=== PATIENT | male | born 1985 ===

== ENCOUNTER 2016-07-27 13:29 | Emergency (ER) | payer SELFPAY ==
[2016-07-27] MEDS ORDERED: TORADOL IM ONE (16:07)
[2016-07-27] MEDS ORDERED: MORPHINE IM ONE (16:07)
[2016-07-27] MEDS ORDERED: VALIUM PO ONE (17:13)
--- NOTE | 2016-07-27 17:29 | Emergency Department Report ---
ED Back Pain/Injury HPI - General Chief Complaint: Back Pain/Injury Stated Complaint: BACK PAIN Time Seen by Provider: 07/27/16 15:56 Source: patient Limitations: No Limitations - History of Present Illness Initial Comments: Patient comes into the ER today with complaints of lower back pain after pulling on a pallet yesterday while at work. Patient states that initially he felt a little discomfort but that the pain seemed to worsen with time. States the pain is a lot worse this morning and that it is very hard for him to get out of bed. Patient denies any loss of bowel control or urinary control. Patient states the pain is not radiating down his legs. Patient denies any past history of back problems. MD Complaint: back pain, back injury -: days(s) (1) - Related Data Previous Rx's Medication Instructions Recorded Last Taken Type Diazepam Tab [Valium] 5 mg PO TID PRN #20 tablet 07/27/16 Unknown Rx predniSONE [Deltasone] 20 mg PO QDAY #18 tab 07/27/16 Unknown Rx traMADol [Ultram 50 MG tab] 50 mg PO Q4HR PRN #20 tablet 07/27/16 Unknown Rx Allergies Allergy/AdvReac Type Severity Reaction Status Date / Time No Known Allergies Allergy Verified 05/17/14 16:43 ED Review of Systems ROS: Stated complaint: BACK PAIN Other details as noted in HPI Constitutional: denies: chills, fever Eyes: denies: eye pain, eye discharge, vision change ENT: denies: ear pain, throat pain Respiratory: denies: cough, shortness of breath, wheezing Cardiovascular: denies: chest pain, palpitations Endocrine: no symptoms reported Gastrointestinal: denies: abdominal pain, nausea, diarrhea Genitourinary: denies: urgency, dysuria Musculoskeletal: back pain. denies: joint swelling, arthralgia Skin: denies: rash, lesions Neurological: denies: headache, weakness, paresthesias Psychiatric: denies: anxiety, depression Hematological/Lymphatic: denies: easy bleeding, easy bruising ED Past Medical Hx - Past Medical History Previous Medical History?: Yes Hx Hypertension: No Hx CVA: No Hx Heart Attack/AMI: No Hx Congestive Heart Failure: No Hx Diabetes: No Hx Deep Vein Thrombosis: No Hx Pulmonary Embolism: No Hx GERD: No Hx Liver Disease: No Hx Renal Disease: No Hx Sickle Cell Disease: No Hx Arthritis: No Hx Headaches / Migraines: No Hx Seizures: No Hx Kidney Stones: No Hx Psychiatric Treatment: No Hx Asthma: Yes Hx COPD: No Hx Tuberculosis: No Hx Dementia: No Hx HIV: No Additional medical history: PTSD. head trauma. Multiple injuries to the left foot and ankle to include fractures - Surgical History Past Surgical History?: Yes Hx Coronary Stent: No Hx Open Heart Surgery: No Hx Pacemaker: No Hx Internal Defibrillator: No Hx Cholecystectomy: No Hx Appendectomy: No Hx Breast Surgery: No Additional Surgical History: tonsillectomy. finger reattachment - Social History Smoking Status: Current Every Day Smoker Substance Use Type: None - Medications Home Medications: Home Medications Medication Instructions Recorded Confirmed Last Taken Type Diazepam Tab [Valium] 5 mg PO TID PRN #20 tablet 07/27/16 Unknown Rx predniSONE [Deltasone] 20 mg PO QDAY #18 tab 07/27/16 Unknown Rx traMADol [Ultram 50 MG tab] 50 mg PO Q4HR PRN #20 tablet 07/27/16 Unknown Rx ED Physical Exam - General Limitations: No Limitations General appearance: alert, in no apparent distress - Head Head exam: Present: atraumatic, normocephalic - Eye Eye exam: Present: normal appearance - ENT ENT exam: Present: mucous membranes moist - Neck Neck exam: Present: normal inspection - Respiratory Respiratory exam: Present: normal lung sounds bilaterally. Absent: respiratory distress - Cardiovascular Cardiovascular Exam: Present: regular rate, normal rhythm. Absent: systolic murmur, diastolic murmur, rubs, gallop - GI/Abdominal GI/Abdominal exam: Present: soft, normal bowel sounds. Absent: distended, tenderness - Rectal Rectal exam: Present: deferred - Extremities Exam Extremities exam: Present: normal inspection, full ROM, normal capillary refill. Absent: tenderness, pedal edema - Back Exam Back exam: Present: normal inspection, tenderness (midline lumbar paraspinal muscle tenderness.), muscle spasm, paraspinal tenderness. Absent: full ROM ( Limited range of motion secondary to pain.), CVA tenderness (R), CVA tenderness (L) - Neurological Exam Neurological exam: Present: alert, oriented X3, CN II-XII intact, reflexes normal. Absent: motor sensory deficit - Psychiatric Psychiatric exam: Present: normal affect, normal mood - Skin Skin exam: Present: warm, dry, intact, normal color. Absent: rash ED Course Vital Signs 07/27/16 07/27/16 07/27/16 13:49 16:16 16:17 Temperature 98.4 F Pulse Rate 55 L Respiratory 18 18 18 Rate Blood Pressure 117/77 O2 Sat by Pulse 100 Oximetry ED Medical Decision Making - Radiology Data Radiology results: image reviewed interpreted by me: Personal interpretation of x-rays reveals lumbar vertebrae to be in good alignment, no loss of disc space noted, no fracture noted. - Medical Decision Making Patient is nontoxic and hemodynamically stable. X-ray results review discuss the patient's family. I believe patient's symptoms are mostly muscular in etiology. Patient was given Toradol and morphine intramuscular here in the ER for symptomatic relief. Patient state he is feeling better but still uncomfortable after injections. I will continue patient on some muscle relaxers , anti-inflammatories, pain medications but symptomatically. I'll also refer patient to orthopedics for further evaluation to ensure resolution of injury. Patient is in agreement treatment plan patient is stable for discharge. Critical care attestation.: If time is entered above; I have spent that time in minutes in the direct care of this critically ill patient, excluding procedure time. ED Disposition Clinical Impression: Low back pain, Lumbar spine strain Disposition: DC-01 TO HOME OR SELFCARE Is pt being admited?: No Does the pt Need Aspirin: No Condition: Good Instructions: Low Back Strain (ED) Prescriptions: Diazepam Tab [Valium] 5 mg PO TID PRN #20 tablet PRN Reason: Muscle Spasm predniSONE [Deltasone] 20 mg PO QDAY #18 tab traMADol [Ultram 50 MG tab] 50 mg PO Q4HR PRN #20 tablet PRN Reason: Pain Referrals: PRIMARY CARE, [Primary Care Provider] - 3-5 Days JORGE A DENIS MD [Staff Physician] - 3-5 Days Forms: Work/School Release Form(ED) Time of Disposition: 17:46
[2016-07-27 18:11] VITALS: BP 128/72
--- NOTE | 2016-07-28 07:26 | XRay Report ---
AP AND LATERAL LUMBOSACRAL SPINE: History: Low back pain, lifting injury. The vertebral bodies are well mineralized and normal in alignment and vertebral height with well preserved interspace distances. The visualized portions of the posterior elements are normal. IMPRESSION: Normal study.
== END 2016-07-27 18:12 | disposition home or self-care (01) ==
LOC: ED 13:29
DX: S39.012A Strain of muscle, fascia and tendon of lower back, initial encounter (principal); J45.909 Unspecified asthma, uncomplicated; F17.200 Nicotine dependence, unspecified, uncomplicated; X58.XXXA Exposure to other specified factors, initial encounter; Y93.89 Activity, other specified; Y99.9 Unspecified external cause status; Y92.89 Other specified places as the place of occurrence of the external cause
CPT/HCPCS: 72100; 96372; 99283; J1885; J2270

== ENCOUNTER 2016-10-13 20:59 | Emergency (ER) | payer SELFPAY ==
--- NOTE | 2016-10-13 22:17 | Emergency Department Report ---
<CITLALLI JEREZ - Last Filed: 10/13/16 23:31> ED Upper Extremity Inj HPI - General Chief Complaint: Extremity Injury, Upper Stated Complaint: FINGER PAIN Time Seen by Provider: 10/13/16 22:03 Source: patient Mode of arrival: Ambulatory Limitations: No Limitations - History of Present Illness Initial Comments: This is a 30-year-old male nontoxic, well nourished in appearance, no acute signs of distress the presented ED complaining of left ring and left middle finger pain status post direct blow that has occurred today around 8 PM. Patient that he was playing with his children basketball when his child ran into his f left ring and middle fingers. Patient stated he then fell down to his left shoulder region. Patient denies any numbness, tingling, decreased range of motion, fever, chills, headache, chest pain or short of breath. Patient denies any head trauma. Denies loss of consciousness. Patient denies any decreased range of motion of shoulder. Patient stated has pain while having range of motion of digits and shoulder. Discussed pain as aching with level of 10 out of 10. Patient denies any drug allergies. Past medical history includes asthma and PTSD. 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 MD Complaint: Injury to:: left, shoulder, hand -: Gradual, This evening Other Extremity Injury: Fingers: Left, Hand: Left, Shoulder: Left Other Injuries: none Place: outdoors Severity scale (0 -10): 10 Improves With: none Worsens With: movement of extremity Context: fall (shoulder), direct blow (digits) Associated Symptoms: denies other symptoms. denies: weakness, numbness, neck pain, suspects foreign body, nausea/vomiting, heard/felt popping sensat - Related Data Previous Rx's Medication Instructions Recorded Last Taken Type Diazepam Tab [Valium] 5 mg PO TID PRN #20 tablet 07/27/16 Unknown Rx predniSONE [Deltasone] 20 mg PO QDAY #18 tab 07/27/16 Unknown Rx traMADol [Ultram 50 MG tab] 50 mg PO Q4HR PRN #20 tablet 07/27/16 Unknown Rx traMADol [Ultram] 50 mg PO Q6HR PRN #12 tablet 10/13/16 Unknown Rx Allergies Allergy/AdvReac Type Severity Reaction Status Date / Time No Known Allergies Allergy Verified 10/13/16 22:24 ED Review of Systems ROS: Stated complaint: FINGER PAIN Other details as noted in HPI Constitutional: denies: chills, fever Eyes: denies: eye pain, eye discharge, vision change ENT: denies: ear pain, throat pain Respiratory: denies: cough, shortness of breath, wheezing Cardiovascular: denies: chest pain, palpitations Endocrine: no symptoms reported Gastrointestinal: denies: abdominal pain, nausea, diarrhea Genitourinary: denies: urgency, dysuria Musculoskeletal: arthralgia (shoulder and fingers). denies: back pain, joint swelling Skin: denies: rash, lesions Neurological: denies: headache, weakness, paresthesias Psychiatric: denies: anxiety, depression Hematological/Lymphatic: denies: easy bleeding, easy bruising ED Past Medical Hx - Past Medical History Previous Medical History?: Yes Hx Hypertension: No Hx CVA: No Hx Heart Attack/AMI: No Hx Congestive Heart Failure: No Hx Diabetes: No Hx Deep Vein Thrombosis: No Hx Pulmonary Embolism: No Hx GERD: No Hx Liver Disease: No Hx Renal Disease: No Hx Sickle Cell Disease: No Hx Arthritis: No Hx Headaches / Migraines: No Hx Seizures: No Hx Kidney Stones: No Hx Psychiatric Treatment: No Hx Asthma: Yes Hx COPD: No Hx Tuberculosis: No Hx Dementia: No Hx HIV: No Additional medical history: PTSD. head trauma. Multiple injuries to the left foot and ankle to include fractures - Surgical History Past Surgical History?: Yes Hx Coronary Stent: No Hx Open Heart Surgery: No Hx Pacemaker: No Hx Internal Defibrillator: No Hx Cholecystectomy: No Hx Appendectomy: No Hx Breast Surgery: No Additional Surgical History: tonsillectomy. finger reattachment - Social History Smoking Status: Current Every Day Smoker Substance Use Type: Alcohol - Medications Home Medications: Home Medications Medication Instructions Recorded Confirmed Last Taken Type Diazepam Tab [Valium] 5 mg PO TID PRN #20 tablet 07/27/16 Unknown Rx predniSONE [Deltasone] 20 mg PO QDAY #18 tab 07/27/16 Unknown Rx traMADol [Ultram 50 MG tab] 50 mg PO Q4HR PRN #20 tablet 07/27/16 Unknown Rx traMADol [Ultram] 50 mg PO Q6HR PRN #12 tablet 10/13/16 Unknown Rx ED Physical Exam - General Limitations: No Limitations General appearance: alert, in no apparent distress - Head Head exam: Present: atraumatic, normocephalic, normal inspection - Eye Eye exam: Present: normal appearance, PERRL, EOMI. Absent: scleral icterus, conjunctival injection, nystagmus, periorbital swelling, periorbital tenderness Pupils: Present: normal accommodation - ENT ENT exam: Present: normal exam, normal orophraynx, mucous membranes moist, TM's normal bilaterally, normal external ear exam - Neck Neck exam: Present: normal inspection, full ROM. Absent: tenderness, meningismus, lymphadenopathy, thyromegaly - Respiratory Respiratory exam: Present: normal lung sounds bilaterally. Absent: respiratory distress, wheezes, rales, rhonchi, stridor, chest wall tenderness, accessory muscle use, decreased breath sounds, prolonged expiratory - Cardiovascular Cardiovascular Exam: Present: regular rate, normal rhythm. Absent: systolic murmur, diastolic murmur, rubs, gallop - GI/Abdominal GI/Abdominal exam: Present: soft, normal bowel sounds. Absent: distended, tenderness, guarding, rebound, rigid, diminished bowel sounds - Rectal Rectal exam: Present: deferred - Extremities Exam Extremities exam: Present: normal inspection, full ROM, tenderness, normal capillary refill. Absent: pedal edema, joint swelling, calf tenderness - Expanded Upper Extremity Exam Left General: Present: normal inspection Shoulder Exam: Present: normal inspection, full ROM (limited due to pain), tenderness. Absent: swelling, abrasion, laceration, ecchymosis, deformity, crepidus, dislocation, erythema, tenderness over AC joint Upper Arm exam: Present: normal inspection, full ROM. Absent: tenderness, swelling, abrasion, laceration, ecchymosis, deformity, crepidus, dislocation, erythema Elbow exam: Present: normal inspection, full ROM. Absent: tenderness, swelling , abrasion, laceration, ecchymosis, deformity, crepidus, dislocation, erythema, effusion, pain w/ pronation/supination, tenderness over radial head Forearm Wrist exam: Present: normal inspection, full ROM. Absent: tenderness, swelling, abrasion, laceration, ecchymosis, deformity, crepidus, dislocation, erythema, tenderness over anatomical snuff box, pain with axial thumb loading Hand Wrist exam: Present: normal inspection, full ROM (limited due to pain), tenderness. Absent: swelling, abrasion, laceration, ecchymosis, deformity, crepidus, dislocation, erythema, amputation, nail avulsion, subungual hematoma Neuro motor exam: Present: wrist extension intact, thumb opposition intact, thumb IP flexion intact, thumb adduction intact, fingers 2-5 abduction intact Neurosensory exam: Present: 2-point discrimination, radial nerve intact, ulnar nerve intact, median nerve intact Vascular: Present: vascular compromise, normal capillary refill, radial pulse, brachial pulse, ulnar pulse - Back Exam Back exam: Present: normal inspection, full ROM. Absent: tenderness, CVA tenderness (R), CVA tenderness (L), muscle spasm, paraspinal tenderness, vertebral tenderness, rash noted - Neurological Exam Neurological exam: Present: alert, oriented X3, CN II-XII intact, normal gait, reflexes normal - Psychiatric Psychiatric exam: Present: normal affect, normal mood - Skin Skin exam: Present: warm, dry, intact, normal color. Absent: rash ED Course Vital Signs 10/13/16 10/13/16 10/13/16 21:07 23:29 23:35 Temperature 98.0 F 98.8 F Pulse Rate 93 H 87 63 Respiratory 26 H 20 16 Rate Blood Pressure 131/103 Blood Pressure 130/89 115/70 [130/89] O2 Sat by Pulse 97 100 99 Oximetry - Reevaluation(s) Reevaluation #1: 10/13/16 22:29 Patient is speaking in full sentences with no signs of distress noted. - Consultations Consultation #1: 10/13/16 22:30 Dr. Moy consulted about patient exam and xray findings. Agrees to ED plan of care and d/c plan of care with f/u ortho. ED Medical Decision Making - Medical Decision Making ED course; this is a 30-year-old male presents with fourth metacarpal fracture Patient was examined by myself. Patient is stable. Patient received [place] and Toradol in the ED for pain. X-ray has been obtained which indicates fourth metacarpal fracture. Dictated by radiologist. Patient was notified or fracture and x-ray findings with no further questions noted by the patient. Dr. Moy has been consulted about physical exam and x-ray findings. Patient received a ulna gutter splint in the ED. Post-examination of ulna gutter splint ; patient denies any numbness or tingling, with normal range of motion, with normal capillary refill less than 2 seconds, patient denies splint being too tight. Patient was instructed to rest, elevate and ice extremity. Patient also instructed to follow-up with orthopedic doctor in 3-5 days or if symptoms such as numbness, tingling, or worsening symptoms return to emergency room as soon as possible. At time time of discharge, the patient does not seem toxic or ill in appearance. No acute signs of distress noted. Patient agrees to discharge treatment plan of care. No further questions noted by the patient. Patient was also instructed not to operate any machinery as a discharge due to drowsiness/sedation of Bro[place]us. Patient's states she will try the patient home. Critical care attestation.: If time is entered above; I have spent that time in minutes in the direct care of this critically ill patient, excluding procedure time. ED Disposition Disposition: DC-01 TO HOME OR SELFCARE Is pt being admited?: No Does the pt Need Aspirin: No Condition: Stable Instructions: Tramadol (By mouth), Hand Fracture (ED), Splint Care (ED), RICE Therapy (ED) Additional Instructions: follow-up with orthopedic doctor in 3-5 days or if symptoms such as numbness, tingling, or worsening symptoms return to emergency room as soon as possible. Do not operate any machinery while taking Ultram due to sedation/drowsiness. Do not operate any machinery after discharge due to sedation/drowsiness of [place] that he received in emergency room. Rest, elevate, and ice extremity. Prescriptions: traMADol [Ultram] 50 mg PO Q6HR PRN #12 tablet PRN Reason: Pain Referrals: PRIMARY CARE, [Primary Care Provider] - 3-5 Days JORGE A DENIS MD [Staff Physician] - 3-5 Days [facility] [Outside] - 3-5 Days [facility] [Outside] - 3-5 Days Forms: Work/School Release Form(ED) <ELOY PRICE - Last Filed: 10/21/16 16:26> ED Medical Decision Making - Medical Decision Making I am administratively signing this chart for a provider who . I did not see this patient.
[2016-10-13] MEDS ORDERED: NORCO 7.5/325 PO ONE (22:18)
[2016-10-13] MEDS ORDERED: TORADOL IM ONE (22:26)
--- NOTE | 2016-10-13 23:10 | XRay Report ---
FINAL REPORT PROCEDURE: XR SHOULDER 2+V LT TECHNIQUE: Three views left shoulder HISTORY: LEFT SHOULDER PAIN COMPARISON: No prior studies are available for comparison. FINDINGS: No acute fracture left shoulder. No dislocation seen. IMPRESSION: No dislocation or fracture left shoulder
--- NOTE | 2016-10-13 23:15 | XRay Report ---
FINAL REPORT PROCEDURE: Left hand. TECHNIQUE: Three views. HISTORY: Left hand pain. COMPARISON: No prior studies are available for comparison. FINDINGS: There is an oblique fracture through the proximal metaphysis and diaphysis of the 4th metacarpal. There is approximately 1 millimeter of medial displacement of the distal fragment. There is approximately 1 millimeter of posterior displacement of the distal fragment. Alignment is anatomic. The remaining bones appear intact. The joint spaces appear normal. The soft tissues are unremarkable. IMPRESSION: Acute fracture of the 4th metacarpal.
[2016-10-13 23:35] VITALS: BP 115/70
== END 2016-10-14 01:07 | disposition home or self-care (01) ==
LOC: ED 20:59
DX: S62.305A Unspecified fracture of fourth metacarpal bone, left hand, initial encounter for closed fracture (principal); F17.200 Nicotine dependence, unspecified, uncomplicated; W21.03XA Struck by baseball, initial encounter; Y93.9 Activity, unspecified; Y92.9 Unspecified place or not applicable; Y99.8 Other external cause status
CPT/HCPCS: 29125; 73030; 73130; 96372; 99284; J1885

== ENCOUNTER 2017-08-15 03:11 | Emergency (ER) | payer SELFPAY ==
[2017-08-15 03:22] VITALS: BP 130/92
[2017-08-15] MEDS ORDERED: TYLENOL ONE (03:28)
[2017-08-15] MEDS ORDERED: TYLENOL PO ONE (03:29)
[2017-08-15] MEDS ORDERED: NORCO 10/325 PO ONE (04:22)
[2017-08-15] MEDS ORDERED: DILAUDID ONE (04:53)
[2017-08-15] MEDS ORDERED: DILAUDID IM ONE (04:54)
--- NOTE | 2017-08-15 04:59 | XRay Report ---
FINAL REPORT PROCEDURE: XR ANKLE 3+V RT TECHNIQUE: RIGHT ankle radiographs, AP, lateral, and oblique views. CPT 75576 HISTORY: Rt foot/ankle pain and swelling post injury COMPARISON: No prior studies are available for comparison. FINDINGS: Fracture (s) and/or Dislocation(s): None. Alignment: Normal. Joint space(s): Normal. Soft tissues: Normal. Bone mineralization: Normal. Foreign bodies: None. Calcaneal spurring: None. IMPRESSION: Normal Examination.
--- NOTE | 2017-08-15 04:59 | Emergency Department Report ---
ED Lower Extremity HPI - General Chief Complaint: Extremity Injury, Lower Stated Complaint: RIGHT LEG PAIN Time Seen by Provider: 08/15/17 04:54 Source: patient Mode of arrival: Wheelchair Limitations: No Limitations - History of Present Illness Initial Comments: 31-year-old male past medical history none presents with complaint of severe right posterior ankle pain. Patient states that he was running while at a birthday [employer] and felt a sudden snap behind his right ankle. c/o severe pain radiating from the posterior mid ankle region radiating up the calf. Patient is limping due to severe pain in right calf. Patient denies any other injuries or head trauma MD Complaint: leg injury, ankle injury -: This evening Injury: Ankle: Right Place: home Severity: severe Severity scale (0 -10): 8 Improves With: immobilization Worsens With: weight bearing, movement, palpation Context: running Associated Symptoms: snap/pop sensation, swelling, unable to bear weight - Related Data Previous Rx's Medication Instructions Recorded Last Taken Type Diazepam Tab [Valium] 5 mg PO TID PRN #20 tablet 07/27/16 Unknown Rx predniSONE [Deltasone] 20 mg PO QDAY #18 tab 07/27/16 Unknown Rx traMADol [Ultram 50 MG tab] 50 mg PO Q4HR PRN #20 tablet 07/27/16 Unknown Rx traMADol [Ultram] 50 mg PO Q6HR PRN #12 tablet 10/13/16 Unknown Rx HYDROcodone/ACETAMINOPHEN [[place] 1 each PO Q8H PRN #15 tablet 08/15/17 Unknown Rx 5-325 Tablet] Ibuprofen [Motrin] 800 mg PO Q8HR PRN #25 tablet 08/15/17 Unknown Rx Allergies Allergy/AdvReac Type Severity Reaction Status Date / Time No Known Allergies Allergy Verified 10/13/16 22:24 ED Review of Systems ROS: Stated complaint: RIGHT LEG PAIN Other details as noted in HPI Constitutional: denies: chills, fever Eyes: denies: eye pain, eye discharge, vision change ENT: denies: ear pain, throat pain Respiratory: denies: cough, shortness of breath, wheezing Cardiovascular: denies: chest pain, palpitations Endocrine: no symptoms reported Gastrointestinal: denies: abdominal pain, nausea, diarrhea Genitourinary: denies: urgency, dysuria Musculoskeletal: as per HPI. denies: back pain, joint swelling, arthralgia Skin: denies: rash, lesions Neurological: denies: headache, weakness, paresthesias Psychiatric: denies: anxiety, depression Hematological/Lymphatic: denies: easy bleeding, easy bruising ED Past Medical Hx - Past Medical History Previous Medical History?: Yes Hx Hypertension: No Hx CVA: No Hx Heart Attack/AMI: No Hx Congestive Heart Failure: No Hx Diabetes: No Hx Deep Vein Thrombosis: No Hx Pulmonary Embolism: No Hx GERD: No Hx Liver Disease: No Hx Renal Disease: No Hx Sickle Cell Disease: No Hx Arthritis: No Hx Headaches / Migraines: No Hx Seizures: No Hx Kidney Stones: No Hx Psychiatric Treatment: No Hx Asthma: No Hx COPD: No Hx Tuberculosis: No Hx Dementia: No Hx HIV: No Additional medical history: PTSD. head trauma. Multiple injuries to the left foot and ankle to include fractures - Surgical History Past Surgical History?: Yes Hx Coronary Stent: No Hx Open Heart Surgery: No Hx Pacemaker: No Hx Internal Defibrillator: No Hx Cholecystectomy: No Hx Appendectomy: No Hx Breast Surgery: No Additional Surgical History: tonsillectomy. finger reattachment - Social History Smoking Status: Current Every Day Smoker Substance Use Type: Alcohol - Medications Home Medications: Home Medications Medication Instructions Recorded Confirmed Last Taken Type Diazepam Tab [Valium] 5 mg PO TID PRN #20 tablet 07/27/16 Unknown Rx predniSONE [Deltasone] 20 mg PO QDAY #18 tab 07/27/16 Unknown Rx traMADol [Ultram 50 MG tab] 50 mg PO Q4HR PRN #20 tablet 07/27/16 Unknown Rx traMADol [Ultram] 50 mg PO Q6HR PRN #12 tablet 10/13/16 Unknown Rx HYDROcodone/ACETAMINOPHEN [[place] 1 each PO Q8H PRN #15 tablet 08/15/17 Unknown Rx 5-325 Tablet] Ibuprofen [Motrin] 800 mg PO Q8HR PRN #25 tablet 08/15/17 Unknown Rx ED Physical Exam - General Limitations: No Limitations General appearance: alert, in no apparent distress - Head Head exam: Present: atraumatic, normocephalic - Eye Eye exam: Present: normal appearance - ENT ENT exam: Present: mucous membranes moist - Neck Neck exam: Present: normal inspection - Respiratory Respiratory exam: Present: normal lung sounds bilaterally. Absent: respiratory distress - Cardiovascular Cardiovascular Exam: Present: regular rate, normal rhythm. Absent: systolic murmur, diastolic murmur, rubs, gallop - GI/Abdominal GI/Abdominal exam: Present: soft, normal bowel sounds - Rectal Rectal exam: Present: deferred - Extremities Exam Extremities exam: Present: normal inspection - Expanded Lower Extremity Exam Right Ankle exam: Present: tenderness, swelling (tenderness and swelling in Achilles tendon region on exam. Positive Colon test) Neuro vascular tendon exam: Present: no vascular compromise (dorsalis pedis and posterior tibial pulses strong to palpation on exam) 1 - Severe pain in this region here - Back Exam Back exam: Present: normal inspection - Neurological Exam Neurological exam: Present: alert, oriented X3, abnormal gait - Psychiatric Psychiatric exam: Present: normal affect, normal mood - Skin Skin exam: Present: warm, dry, intact, normal color. Absent: rash ED Course Vital Signs 08/15/17 08/15/17 03:10 03:24 Temperature 98.3 F 98.3 F Pulse Rate 82 79 Respiratory 18 18 Rate Blood Pressure 130/92 130/92 O2 Sat by Pulse 97 99 Oximetry ED Lower Extremity MDM - Medical Decision Making A/P: Likely right Achilles injury possible Achilles tendon rupture 1-will be given crutches, nonweightbearing right extremity. Posterior splint placed in a plantarflexed position. Good distal pulses and sensation on exam of right lower extremity 2-Motrin when necessary, [place] when necessary 3-I emphasized the importance of follow-up with orthopedics to the patient to mitigate any long-term disability. Patient stated that he would follow-up as soon as possible and will call for appointment tomorrow. Patient's at bedside for this conversation would also make sure that he follows up ESEQUIEL. 4-x-ray shows no fracture at this time. Patient sustained no other injuries. Critical care attestation.: If time is entered above; I have spent that time in minutes in the direct care of this critically ill patient, excluding procedure time. ED Disposition Clinical Impression: Achilles rupture, right Qualifiers: Encounter type: initial encounter Qualified Code(s): S86.011A - Strain of right Achilles tendon, initial encounter Disposition: - TO HOME OR SELFCARE Is pt being admited?: No Does the pt Need Aspirin: No Condition: Stable Instructions: Achilles Tendon Rupture (ED), Achilles Tendinitis (ED), RICE Therapy (ED), Crutch Instructions (ED) Prescriptions: HYDROcodone/ACETAMINOPHEN [[place] 5-325 Tablet] 1 each PO Q8H PRN #15 tablet PRN Reason: Pain , Severe (7-10) Ibuprofen [Motrin] 800 mg PO Q8HR PRN #25 tablet PRN Reason: Pain , Severe (7-10) Referrals: JORGE A DENIS MD [Staff Physician] - 3-5 Days Time of Disposition: 04:59
[2017-08-15] MEDS ORDERED: TORADOL ONE (05:07)
[2017-08-15] MEDS ORDERED: TORADOL IM ONE (05:08)
== END 2017-08-15 05:17 | disposition home or self-care (01) ==
LOC: ED 03:11
DX: S86.011A Strain of right Achilles tendon, initial encounter (principal); F17.200 Nicotine dependence, unspecified, uncomplicated; F43.10 Post-traumatic stress disorder, unspecified; Z79.899 Other long term (current) drug therapy; Z90.89 Acquired absence of other organs; W18.30XA Fall on same level, unspecified, initial encounter; Y93.02 Activity, running; Y99.8 Other external cause status; Y92.89 Other specified places as the place of occurrence of the external cause
CPT/HCPCS: 29515; 73610; 96372; 99284; J1170; J1885

== ENCOUNTER 2017-10-02 21:27 | Emergency (ER) | payer SELFPAY ==
[2017-10-02 21:38] VITALS: BP 122/76
--- NOTE | 2017-10-02 22:06 | XRay Report ---
FINAL REPORT EXAM: XR ANKLE 3+V RT HISTORY: pain swelling r/t ankle injury TECHNIQUE: Frontal, lateral, mortise views right ankle Comparison: X-ray right ankle dated August 15, 2017 FINDINGS: There is no evidence of fracture or subluxation. The mortise joint is maintained. There is soft tissue swelling on the posterior aspect of the lower leg and ankle with loss of definition of the Achilles tendon. This is suggestive of Achilles tendon injury, acute or subacute. There is mild soft tissue swelling on the lateral aspect of the ankle. IMPRESSION: 1. Findings suggestive of Achilles tendon injury, acute or subacute. MRI would be helpful for further evaluation. 2. No evidence of fracture or subluxation.
[2017-10-03] MEDS ORDERED: NORCO 5/325 PO ONE (00:05)
[2017-10-03] MEDS ORDERED: NORCO 5/325 ONE (00:12)
[2017-10-03] MEDS ORDERED: ZOFRAN IM ONE (00:33)
[2017-10-03] MEDS ORDERED: MORPHINE IM ONE (00:33)
--- NOTE | 2017-10-03 00:39 | Emergency Department Report ---
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 pain since yesterday history of Achilles tendon injury same site patient currently in rehabilitation wearing bora boot [place] states he had a go back to work early complaining she rocked and he felt a pop yesterday pain and swelling since pain level 7/10 pain relieved by offloading and hydrocodone patient states R hydrocodone at this time not get into ortho until next week , patient is partially weightbearing at this time MD Complaint: ankle injury, foot injury Onset/Timin -: days(s) Injury: Ankle: Right, Foot: Right Type of Injury: other (achiles injury ) Place: work Severity: moderate Severity scale (0 -10): 5 Improves With: nothing Worsens With: weight bearing, movement, palpation Context: walking Associated Symptoms: snap/pop sensation, swelling, tingling, able to partially bear weight. denies: numbness - Related Data Previous Rx's Medication Instructions Recorded Last Taken Type Diazepam Tab [Valium] 5 mg PO TID PRN #20 tablet 07/27/16 Unknown Rx predniSONE [Deltasone] 20 mg PO QDAY #18 tab 07/27/16 Unknown Rx traMADol [Ultram 50 MG tab] 50 mg PO Q4HR PRN #20 tablet 07/27/16 Unknown Rx traMADol [Ultram] 50 mg PO Q6HR PRN #12 tablet 10/13/16 Unknown Rx HYDROcodone/ACETAMINOPHEN [[place] 1 each PO Q8H PRN #15 tablet 08/15/17 Unknown Rx 5-325 Tablet] Ibuprofen [Motrin] 800 mg PO Q8HR PRN #25 tablet 08/15/17 Unknown Rx Cyclobenzaprine [Flexeril] 10 mg PO TID PRN #30 tablet 10/03/17 Unknown Rx HYDROcodone/ACETAMINOPHEN 1 each PO QID PRN #15 tablet 10/03/17 Unknown Rx [Hydrocodon-Acetaminophen 5-325] Allergies Allergy/AdvReac Type Severity Reaction Status Date / Time No Known Allergies Allergy Verified 10/13/16 22:24 ED Review of Systems ROS: Stated complaint: RT ANKLE INJURY Other details as noted in HPI Constitutional: denies: chills, fever Eyes: denies: eye pain, eye discharge, vision change ENT: denies: ear pain, throat pain Respiratory: denies: cough, shortness of breath, wheezing Cardiovascular: denies: chest pain, palpitations Endocrine: no symptoms reported Gastrointestinal: denies: abdominal pain, nausea, diarrhea Genitourinary: denies: urgency, dysuria Musculoskeletal: joint swelling, myalgia Skin: denies: rash, lesions Neurological: denies: headache, weakness, paresthesias Psychiatric: denies: anxiety, depression Hematological/Lymphatic: denies: easy bleeding, easy bruising ED Past Medical Hx - Past Medical History Hx Hypertension: No Hx CVA: No Hx Heart Attack/AMI: No Hx Congestive Heart Failure: No Hx Diabetes: No Hx Deep Vein Thrombosis: No Hx Pulmonary Embolism: No Hx GERD: No Hx Liver Disease: No Hx Renal Disease: No Hx Sickle Cell Disease: No Hx Arthritis: No Hx Headaches / Migraines: No Hx Seizures: No Hx Kidney Stones: No Hx Psychiatric Treatment: No Hx Asthma: No Hx COPD: No Hx Tuberculosis: No Hx Dementia: No Hx HIV: No Additional medical history: PTSD. head trauma. Multiple injuries to the left foot and ankle to include fractures - Surgical History Hx Coronary Stent: No Hx Open Heart Surgery: No Hx Pacemaker: No Hx Internal Defibrillator: No Hx Cholecystectomy: No Hx Appendectomy: No Hx Breast Surgery: No Additional Surgical History: tonsillectomy. finger reattachment - Social History Smoking Status: Current Every Day Smoker Substance Use Type: Alcohol - Medications Home Medications: Home Medications Medication Instructions Recorded Confirmed Last Taken Type Diazepam Tab [Valium] 5 mg PO TID PRN #20 tablet 07/27/16 Unknown Rx predniSONE [Deltasone] 20 mg PO QDAY #18 tab 07/27/16 Unknown Rx traMADol [Ultram 50 MG tab] 50 mg PO Q4HR PRN #20 tablet 07/27/16 Unknown Rx traMADol [Ultram] 50 mg PO Q6HR PRN #12 tablet 10/13/16 Unknown Rx HYDROcodone/ACETAMINOPHEN [[place] 1 each PO Q8H PRN #15 tablet 08/15/17 Unknown Rx 5-325 Tablet] Ibuprofen [Motrin] 800 mg PO Q8HR PRN #25 tablet 08/15/17 Unknown Rx Cyclobenzaprine [Flexeril] 10 mg PO TID PRN #30 tablet 10/03/17 Unknown Rx HYDROcodone/ACETAMINOPHEN 1 each PO QID PRN #15 tablet 10/03/17 Unknown Rx [Hydrocodon-Acetaminophen 5-325] ED Physical Exam - General Limitations: No Limitations General appearance: alert, in no apparent distress - Head Head exam: Present: atraumatic, normocephalic - Eye Eye exam: Present: normal appearance - ENT ENT exam: Present: mucous membranes moist - Neck Neck exam: Present: normal inspection - Respiratory Respiratory exam: Present: normal lung sounds bilaterally. Absent: respiratory distress - Cardiovascular Cardiovascular Exam: Present: regular rate, normal rhythm. Absent: systolic murmur, diastolic murmur, rubs, gallop - GI/Abdominal GI/Abdominal exam: Present: soft, normal bowel sounds - Rectal Rectal exam: Present: deferred - Extremities Exam Extremities exam: Present: tenderness (pos thompsons, mild ecchymosis posteriro heal tenderness and swelling ), normal capillary refill, joint swelling. Absent : pedal edema, calf tenderness - Expanded Lower Extremity Exam Right Lower Leg exam: Present: normal inspection, full ROM Ankle exam: Present: tenderness (pos thompsons ), swelling, ecchymosis. Absent : crepidus, dislocation, erythema, anterior draw sign Foot/Toe exam: Present: tenderness, swelling, ecchymosis Neuro vascular tendon exam: Absent: motor deficit, sensory deficit, tendon deficit, extremity cold to touch, pallor Gait: Positive: observed and limited by pain - Back Exam Back exam: Present: normal inspection, full ROM. Absent: tenderness, CVA tenderness (R), CVA tenderness (L), muscle spasm, paraspinal tenderness, vertebral tenderness - Neurological Exam Neurological exam: Present: alert, oriented X3, CN II-XII intact - Expanded Neurological Exam Expanded Patient oriented to: Present: person, place, time Speech: Present: fluid speech Cranial nerves: EOM's Intact: Normal, Gag Reflex: Normal, Tongue Deviation: Normal, Nystagmus: Normal, Facial Sensation: Normal Sensory exam: Lower Extremity Light Touch: Normal, Lower Extremity Pin Prick: Normal, Lower Extremity Temperature: Normal, LE 2 Point Discrimination: Normal Motor strength exam: RUE: 5, LUE: 5, RLE: 5, LLE: 5 DTR: ankle (R): 3+ (pos thompsons , pain wtih DTR ) Best Eye Response (Yulia): (4) open spontaneously Best Motor Response (Yulia): (6) obeys commands Best Verbal Response (Yulia): (5) oriented [place] Total: 15 - Skin Skin exam: Present: warm, dry, intact, normal color. Absent: rash ED Course Vital Signs 10/02/17 21:34 Temperature 98.1 F Pulse Rate 66 Respiratory 18 Rate Blood Pressure 122/76 O2 Sat by Pulse 100 Oximetry ED Lower Extremity MDM - Radiology Data Radiology results: report reviewed, image reviewed findings consistent with achilles tendon injury, acute or subacute, no fracture no subluxation - Medical Decision Making X-ray consistent with Achilles tendon injury acute respiratory subacute there is mild ecchymosis positive Colon's test pedal pulses equally palpable bilateral posterior [employer] less than 3 seconds patient is partially weight-bear ing there is mild. No calf tenderness patient has a boot for offloading self prying same as directed by ortho plan tonight crutches to assist in ambulating hydrocodone by mouth when necessary pain Flexeril patient will follow up with orthopedic surgery Dr. 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 ED Disposition Clinical Impression: Achilles tendon injury Qualifiers: Encounter type: subsequent encounter Laterality: right Qualified Code(s): S86.001D - Unspecified injury of right Achilles tendon, subsequent encounter Disposition: - TO HOME OR SELFCARE Is pt being admited?: No Does the pt Need Aspirin: No Condition: Good Instructions: Achilles Tendon Rupture (ED), Crutch Instructions (ED) Prescriptions: Cyclobenzaprine [Flexeril] 10 mg PO TID PRN #30 tablet PRN Reason: Muscle Spasm HYDROcodone/ACETAMINOPHEN [Hydrocodon-Acetaminophen 5-325] 1 each PO QID PRN # 15 tablet PRN Reason: pain Referrals: JORGE A CARBAJAL MD [Staff Physician] - 3-5 Days Forms: Work/School Release Form(ED) Time of Disposition: 00:55
== END 2017-10-03 00:55 | disposition home or self-care (01) ==
LOC: ED 21:27
DX: S86.001A Unspecified injury of right Achilles tendon, initial encounter (principal); F43.10 Post-traumatic stress disorder, unspecified; F17.200 Nicotine dependence, unspecified, uncomplicated; Z90.89 Acquired absence of other organs; W20.8XXA Other cause of strike by thrown, projected or falling object, initial encounter; Y93.89 Activity, other specified; Y99.0 Civilian activity done for income or pay; Y92.69 Other specified industrial and construction area as the place of occurrence of the external cause
CPT/HCPCS: 73610; 96372; 99283; J2270; J2405